=== PATIENT | male | born 1990 | race Hispanic/Latino ===

== ENCOUNTER 2020-03-23 23:56 | Inpatient (IN) | payer OTHER ==
[2020-03-24] MEDS ORDERED: cefTRIAXone\\ROCEPHIN 2 GM VIAL ONE (00:15)
[2020-03-24] MEDS ORDERED: Boostrix 0.5 ML VIAL ONE (00:15)
[2020-03-24 00:17] LABS: #Eosinphils 0.1 thou/uL (0.0-0.7); #Lymphocytes 3.5 thou/uL (1.20-3.40); #Monocytes 0.8 thou/uL (0.11-0.59); #Neutrophils 4.9 thou/uL (1.40-6.50); %Basophils 0.5 % (0.0-1.0); %Eosinophils 1.3 % (0.0-10.0); %Lymphocytes 37.4 % (21.0-51.0); %Monocytes 8.3 % (0.0-10.0); %Neutrophils 52.5 % (42.0-75.0); Hemoglobin 14.6 g/dL (14.0-18.0); Mean Corpuscular HGB CONC 34.2 g/dL (32.0-36.0); Mean Corpuscular Hemoglobin 29.7 pg (27.0-31.0); Mean Corpuscular Volume 86.8 fL (78.0-98.0); Mean Platelet Volume 7.6 fL (7.4-10.4); Platelet Count 265 thou/uL (130-400); RBC Distribution Width 12.3 % (11.5-14.5); White Blood Cell (WBC) Count 9.2 thou/uL (4.8-10.8)
[2020-03-24] MEDS ORDERED: Fentanyl 100 MCG/2 ML VIAL ONE ×8 (00:18→13:59)
[2020-03-24 00:24] LABS: PTT 26.3 sec (22.9-36.1); Prothrombin Time 13.3 sec (12.0-14.7)
[2020-03-24 00:45] LABS: ALT (SGPT) 53 U/L (8-55); AST (SGOT) 51 U/L (5-34); Albumin 4.5 g/dL (3.5-5.0); Alcohol 227 mg/dL (Less than 10); Alkaline Phosphatase 51 U/L (40-110); Anion Gap 18 mmol/L (10-20); BUN (Urea Nitrogen) 12 mg/dL (8.9-20.6); Bilirubin, Total 0.5 mg/dL (0.2-1.2); Calc. Creatinine Clearance 0 mL/min (70-130); Calcium 8.3 mg/dL (7.8-10.44); Carbon Dioxide 20 mmol/L (22-29); Chloride 106 mmol/L (98-107); Estimated GFR-MDRD Greater than 90; Globulin 2.5 g/dL (2.4-3.5); Glucose 107 mg/dL (70-105); Lipase 253 U/L (8-78); Potassium 3.8 mmol/L (3.5-5.1); Sodium 140 mmol/L (136-145)
[2020-03-24] MEDS ORDERED: Lidocaine 1% w/Epinephrine 1:100K 20 ML VIAL ONE (02:32)
[2020-03-24] MEDS ORDERED: Dextrose 50% Abboject 50 ML SYRINGE SLOW IVP PRN (03:16)
[2020-03-24] MEDS ORDERED: Dextrose 5% in Water 1,000 ML IV PRN (03:16)
[2020-03-24] MEDS ORDERED: Ondansetron PF 4 MG/2 ML Vial IVP PRN (03:16)
[2020-03-24] MEDS ORDERED: traMADol HCl 50 MG TAB PO PRN ×2 (03:20)
[2020-03-24] MEDS ORDERED: Cyclobenzaprine 10 MG TAB PO PRN (03:20)
[2020-03-24 03:30] LABS: Phosphorus 4.4 mg/dL (2.3-4.7)
[2020-03-24 03:54] LABS: Lactic Acid 3.2 mmol/L (0.5-2.2)
[2020-03-24] MEDS: Sodium Chloride 0.9% 1,000 ML IV SCH ×2 (04:00→15:13)
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
[2020-03-24] MEDS ORDERED: Clindamycin/D5W 600 mg/50 ml Premix Bag ONE (05:49)
[2020-03-24] MEDS: Clindamycin/D5W 600 MG in Premix Bag 1 BAG IVPB SCH ×3 (06:04→20:42)
[2020-03-24] MEDS ORDERED: Sodium Chloride 0.9% 1,000 ML IV SCH (07:15)
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
--- NOTE | 2020-03-24 07:18 | RAD ---
Exam:3 views left hand HISTORY: Pain and trauma. COMPARISON: None FINDINGS: Preserved joint spaces. No fracture, cortical irregularity or periosteal reaction. IMPRESSION: No fracture.
--- NOTE | 2020-03-24 07:25 | RAD ---
Exam:Left ankle 3 views HISTORY: Pain and deformity COMPARISON: None FINDINGS: Limited evaluation due to overlying external fiberglass cast. There is subcutaneous emphyse ma. Fracture, cortical irregularity is not appreciated. Ankle mortise appears to be intact. IMPRESSION: Soft tissue subcutaneous emphysema suggesting soft tissue injury. No definite fracture.
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
[2020-03-24 07:58] LABS: Bilirubin Negative (Negative); Blood, Urine Trace (Negative); Clarity Clear (Clear); Glucose, Urine (Dipstick) Normal (Negative); Ketone, Urine 10 mg/dL (Negative); Leukocyte Negative Leu/uL (Negative); Nitrite Negative (Negative); Protein, Urine (Dipstick) Negative (Neg-Trace); Urobilinogen Normal mg/dL (Less than 2)
[2020-03-24 07:59] LABS: Bacteria/HPF None Seen HPF (None Seen); Squamous Epithelial None Seen HPF (0-3)
[2020-03-24 08:00] LABS: Urine Culture Reflex Yes Yes
[2020-03-24 08:08] LABS: Medtox Reader # READER 1; Phencyclidine (PCP) Not Detected (NotDetected); THC/Cannabinoid Screen Detected (NotDetected)
[2020-03-24 08:09] LABS: Amphetamine Not Detected (NotDetected); Barbiturates Screen Not Detected (NotDetected); Benzodiazepine Screen Not Detected (NotDetected); Cocaine Metabolite Screen Detected (NotDetected); Medtox Control Line Valid? VALID (VALID); Methadone Not Detected (NotDetected); Methamphetamine Not Detected (NotDetected); Opiate Screen Not Detected (NotDetected); Oxycodone Screen Not Detected (NotDetected); Tricyclic Screen Not Detected (NotDetected)
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
[2020-03-24] MEDS ORDERED: Midazolam HCl 2 mg/2 ml Vial ONE (09:35)
[2020-03-24] MEDS ORDERED: Iopamidol-370 76% 500 ML 1 ML ONE (11:24)
[2020-03-24] MEDS ORDERED: Promethazine HCl 25 MG/ML VIAL SLOW IVP PRN (13:12)
[2020-03-24] MEDS ORDERED: Meperidine HCl/PF 25 MG/ML VIAL SLOW IVP PRN (13:12)
[2020-03-24] MEDS ORDERED: Promethazine HCl 25 MG/ML VIAL IM PRN (13:12)
[2020-03-24] MEDS ORDERED: Ondansetron HCl/PF 4 MG/2 ML Vial IVP PRN (13:12)
--- NOTE | 2020-03-24 13:16 | RAD ---
XR Forearm Rt 2 View STANDARD INDICATION: ORIF of right forearm FINDINGS: Bones: Since the comparison examination dated March 24, 2020 there has been interval reduction an d internal fixation involving the distal radial shaft fracture. Fracture alignment is near anatomic. Total fluoroscopic time was 4.3 seconds. Stable mildly displaced ulnar styloid process frac ture. Joints: No acute abnormality. Soft tissues: No radiopaque foreign body is evident. IMPRESSION: ORIF of right radial shaft fracture. Stable mildly displaced ulnar styloid process fractu re.
--- NOTE | 2020-03-24 13:18 | RAD ---
EXAM: XR Ankle Lt 3 View STANDARD DATE: 03/24/2020 1:09 PM INDICATION: Closed reduction of the left ankle COMPARISON: Left ankle radiograph dated March 23, 2020 FINDING: Submitted image demonstrates maintenance of the ankle mortise and talar dome. No definite a cute fracture or subluxation is evident. There is soft tissue injury involving the posterolateral aspect of the left ankle joint. No radiopaque foreign body is evident. IMPRESSION:No acute fracture or subluxation demonstrated.
--- NOTE | 2020-03-24 13:18 | RAD ---
EXAM: XR Hip Rt 2-3 View PROVIDED CLINICAL HISTORY: ORIF COMPARISON: None FINDINGS: 3 spot fluoroscopic views of what is labeled right hip demonstrate plate and screw fixation of the ac etabulum. IMPRESSION: As above.
--- NOTE | 2020-03-24 13:19 | RAD ---
Single submitted fluoroscopic image of the left foot INDICATION: Closed reduction of left foot fracture COMPARISON: None. FINDINGS: Bones: No acute fracture or subluxation is grossly evident. Lisfranc alignment appears preserved. Tot al fluoroscopic time was 6 seconds. Joints: Joints spaces appear preserved. Lisfranc alignment: Lisfranc alignment appears within normal limits. Soft tissues: No soft tissue injury demonstrated. No radiographic foreign body demonstrated. IMPRESSION: No acute osseous abnormality.
[2020-03-24] MEDS ORDERED: PROPOFOL 200 MG/20 ML VIAL ONE (13:33)
[2020-03-24] MEDS ORDERED: Ondansetron PF 4 MG/2 ML Vial ONE (13:33)
[2020-03-24] MEDS ORDERED: Succinylcholine Chloride 20 MG/ML 10 ml SYRINGE FS ONE (13:33)
[2020-03-24] MEDS ORDERED: Rocuronium Bromide 10 MG/ML (10ML VIAL) ONE (13:33)
[2020-03-24] MEDS ORDERED: Lidocaine 1% PF 5 ML VIAL ONE (13:33)
[2020-03-24] MEDS ORDERED: Glycopyrrolate 0.2 MG/ML 5 ML SYRINGE ONE (13:33)
[2020-03-24] MEDS ORDERED: Dexamethasone 20 MG/5 ML VIAL ONE (13:33)
[2020-03-24 14:46] VITALS: BMI 31.0
[2020-03-24] MEDS: Famotidine/PF 20 mg/2ml Vial SLOW IVP SCH ×2 (15:12→20:42)
[2020-03-24] MEDS: Acetaminophen 500 MG TAB PO SCH ×3 (15:12→20:42)
[2020-03-24] MEDS: Ibuprofen 600 MG TAB PO SCH ×2 (15:12→20:42)
[2020-03-24] MEDS: Senokot S 8.6-50 MG TAB PO SCH ×2 (15:13→22:28)
[2020-03-24] MEDS: Polyethylene Glycol 3350 17 GM Packet PO SCH (15:13)
[2020-03-24] MEDS: Morphine 4 MG/ML VIAL SLOW IVP PRN ×2 (16:16→20:41)
[2020-03-24] MEDS: CEFAZOLIN 2 GM in Premix Bag 1 BAG IVPB SCH (17:28)
[2020-03-24 17:52] LABS: SARS-CoV-2 MS2 Positive; SARS-CoV-2 N Gene Negative; SARS-CoV-2 S Gene Negative; SARS-CoV-2 by NAA Not Detected (NotDetected); SARS-CoV-2 orf1ab Negative
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
[2020-03-25] MEDS: Sodium Chloride 0.9% 1,000 ML IV SCH ×5 (00:03→23:30)
[2020-03-25] MEDS: CEFAZOLIN 2 GM in Premix Bag 1 BAG IVPB SCH ×3 (00:19→17:16)
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
[2020-03-25] MEDS: Acetaminophen 500 MG TAB PO SCH ×3 (02:59→15:24)
[2020-03-25 05:43] LABS: Band 6 % (5-11); Hemoglobin 11.4 g/dL (14.0-18.0); Lymphocytes 9 % (21-51); MDiff Complete? YES; Mean Corpuscular HGB CONC 33.6 g/dL (32.0-36.0); Mean Corpuscular Hemoglobin 29.4 pg (27.0-31.0); Mean Corpuscular Volume 87.5 fL (78.0-98.0); Mean Platelet Volume 8.1 fL (7.4-10.4); Monocytes 12 % (0-10); Neutrophil 73 % (42-75); Platelet Count 192 thou/uL (130-400); RBC Distribution Width 12.3 % (11.5-14.5); Red Blood Cell (RBC) Count 3.87 mill/uL (4.70-6.10)
[2020-03-25 05:45] LABS: Anion Gap 14 mmol/L (10-20); BUN (Urea Nitrogen) 9 mg/dL (8.9-20.6); Calc. Creatinine Clearance 180 mL/min (70-130); Carbon Dioxide 21 mmol/L (22-29); Chloride 104 mmol/L (98-107); Estimated GFR-MDRD Greater than 90; Glucose 138 mg/dL (70-105); Phosphorus 2.2 mg/dL (2.3-4.7); Potassium 4.3 mmol/L (3.5-5.1); Sodium 135 mmol/L (136-145)
[2020-03-25] MEDS: Clindamycin/D5W 600 MG in Premix Bag 1 BAG IVPB SCH ×3 (05:47→21:00)
[2020-03-25] MEDS: Ibuprofen 600 MG TAB PO SCH ×2 (05:48→14:17)
[2020-03-25] MEDS ORDERED: Fentanyl 100 MCG/2 ML VIAL ONE (07:05)
[2020-03-25] MEDS ORDERED: Midazolam HCl 2 mg/2 ml Vial ONE (07:05)
[2020-03-25] MEDS ORDERED: Lidocaine 2% Jelly 5 ML TUBE ONE (07:06)
[2020-03-25] MEDS ORDERED: AFRIN NASAL MIST 15 ML BOT ONE (07:06)
[2020-03-25] MEDS ORDERED: HYDROmorphone 0.5 MG/0.5 ML SYRINGE ONE ×4 (07:06→11:59)
[2020-03-25] MEDS ORDERED: Lidocaine 1% w/Epinephrine 1:100K 20 ML VIAL ONE (07:24)
[2020-03-25] MEDS ORDERED: Bacitracin Zinc Ointment 30 gm TUBE ONE (07:25)
[2020-03-25] MEDS ORDERED: Chlorhexidine Gluconate 15 ML UDCUP SSP ONE (07:25)
[2020-03-25] MEDS ORDERED: Sodium Phosphate 30 MMOL in Sodium Chloride 0.9% 250 ML 250 ML IVPB SCH (07:45)
[2020-03-25] MEDS ORDERED: PHENYLEPHRINE-NS 100 MCG/ML 10 ML SYRINGE ONE ×2 (09:01→09:46)
[2020-03-25] MEDS ORDERED: Glycopyrrolate 0.2 MG/ML 5 ML SYRINGE ONE (09:01)
[2020-03-25] MEDS ORDERED: Dexamethasone 20 MG/5 ML VIAL ONE (09:01)
[2020-03-25] MEDS ORDERED: Succinylcholine Chloride 20 MG/ML 10 ml SYRINGE FS ONE (09:01)
[2020-03-25] MEDS ORDERED: Lidocaine 1% PF 5 ML VIAL ONE (09:01)
[2020-03-25] MEDS ORDERED: PROPOFOL 200 MG/20 ML VIAL ONE (09:01)
[2020-03-25] MEDS ORDERED: Ondansetron PF 4 MG/2 ML Vial ONE (09:01)
[2020-03-25] MEDS ORDERED: Rocuronium Bromide 10 MG/ML (10ML VIAL) ONE (09:01)
[2020-03-25] MEDS: Enoxaparin Sodium 30 MG/0.3 ML SYRINGE SC SCH ×2 (09:59→20:08)
[2020-03-25] MEDS: Senokot S 8.6-50 MG TAB PO SCH ×2 (09:59→20:17)
[2020-03-25] MEDS: Polyethylene Glycol 3350 17 GM Packet PO SCH (09:59)
[2020-03-25] MEDS: Famotidine/PF 20 mg/2ml Vial SLOW IVP SCH ×2 (09:59→20:08)
[2020-03-25] MEDS ORDERED: Meperidine HCl/PF 25 MG/ML VIAL SLOW IVP PRN ×2 (11:48)
[2020-03-25] MEDS ORDERED: Promethazine HCl 25 MG/ML VIAL SLOW IVP PRN (11:48)
[2020-03-25] MEDS ORDERED: HYDROmorphone 2 MG/ML VIAL SLOW IVP PRN (11:48)
[2020-03-25] MEDS ORDERED: Ondansetron HCl/PF 4 MG/2 ML Vial IVP PRN (11:48)
[2020-03-25] MEDS ORDERED: Promethazine HCl 25 MG/ML VIAL IM PRN (11:48)
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
--- NOTE | 2020-03-25 19:33 | CT ---
CT OF THE FACE WITHOUT IV CONTRAST: 03/25/20 INDICATION: Follow-up open reduction and internal fixation of the facial fractures. COMPARISON: Prior exam dated 03/24/20 at 12:44 a.m. FINDINGS: Since the comparison examination, there has been interval wiring of the maxilla. There has been inter chiquita open reduction internal fixation of the comminuted mandibular protuberance and body fractures. Fr acture alignment is near anatomic. Instrumentation projects in the expected position. Bilateral sage bular condylar fractures do not appreciably changed in position and alignment. There is remote left l monie papyracea fracture that is stable appearing. There is scattered mucosal thickening and ethmoid air cells, maxillary sinuses and sphenoid sinus. The visualized intracranial contents appear within n ormal limits. The orbits are normal appearing. There is some edema and soft tissue gas seen overlying the mandible as well as some thickening of the overlying platysma likely reactive in nature related to trauma and recent surgery. IMPRESSION: 1. Interval ORIF of the comminuted midline mandibular fracture s. 2. Mandibular condylar fractures do not appear appreciably changed in position. 3. Interval wiring of the maxilla. POS: BH
[2020-03-25] MEDS: Bacitracin 1 PK TOP SCH (20:07)
[2020-03-25] MEDS: Chlorhexidine Gluconate 15 ML UDCUP SSP SCH (20:08)
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
[2020-03-26] MEDS: Acetaminophen 650 MG/20.3 ML UDCUP PO SCH ×3 (01:00→14:53)
[2020-03-26] MEDS: Ibuprofen 100 MG/5 ML UDCUP PO SCH ×4 (01:06→18:08)
[2020-03-26 05:04] LABS: #Lymphocytes 1.2 thou/uL (1.20-3.40); #Monocytes 1.4 thou/uL (0.11-0.59); %Eosinophils 0.2 % (0.0-10.0); %Lymphocytes 10.3 % (21.0-51.0); %Monocytes 11.7 % (0.0-10.0); %Neutrophils 77.7 % (42.0-75.0); Hemoglobin 9.5 g/dL (14.0-18.0); Mean Corpuscular HGB CONC 32.4 g/dL (32.0-36.0); Mean Corpuscular Hemoglobin 28.9 pg (27.0-31.0); Mean Corpuscular Volume 89.2 fL (78.0-98.0); Mean Platelet Volume 7.7 fL (7.4-10.4); Platelet Count 186 thou/uL (130-400); RBC Distribution Width 12.2 % (11.5-14.5); White Blood Cell (WBC) Count 11.6 thou/uL (4.8-10.8)
[2020-03-26] MEDS: Clindamycin/D5W 600 MG in Premix Bag 1 BAG IVPB SCH ×3 (05:15→21:12)
[2020-03-26 05:25] LABS: Anion Gap 11 mmol/L (10-20); BUN (Urea Nitrogen) 9 mg/dL (8.9-20.6); CK (CPK) 3322 U/L (30-200); Calc. Creatinine Clearance 183 mL/min (70-130); Calcium 7.9 mg/dL (7.8-10.44); Carbon Dioxide 25 mmol/L (22-29); Chloride 107 mmol/L (98-107); Estimated GFR-MDRD Greater than 90; Glucose 141 mg/dL (70-105); Magnesium 2.1 mg/dL (1.6-2.6); Potassium 3.9 mmol/L (3.5-5.1); Sodium 139 mmol/L (136-145)
[2020-03-26 05:28] LABS: Phosphorus 1.9 mg/dL (2.3-4.7)
[2020-03-26] MEDS ORDERED: Sodium Phosphate 30 MMOL in Sodium Chloride 0.9% 250 ML 250 ML IVPB SCH (06:45)
[2020-03-26] MEDS: Famotidine/PF 20 mg/2ml Vial SLOW IVP SCH ×2 (09:25→21:12)
[2020-03-26] MEDS: Enoxaparin Sodium 30 MG/0.3 ML SYRINGE SC SCH ×2 (09:25→21:11)
[2020-03-26] MEDS: Senokot S 8.6-50 MG TAB PO SCH ×2 (09:25→21:12)
[2020-03-26] MEDS: Bacitracin 1 PK TOP SCH ×2 (09:25→21:10)
[2020-03-26] MEDS: Chlorhexidine Gluconate 15 ML UDCUP SSP SCH ×2 (09:25→21:10)
[2020-03-26] MEDS: Polyethylene Glycol 3350 17 GM Packet PO SCH (09:25)
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
[2020-03-26] MEDS ORDERED: Sodium Chloride 0.65% Nasal 44 ML BOT EA NARE PRN (11:47)
[2020-03-26] MEDS: Sodium Chloride 0.9% 1,000 ML IV SCH ×3 (12:36→21:09)
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
[2020-03-27] MEDS: Acetaminophen 650 MG/20.3 ML UDCUP PO SCH ×7 (00:48→20:52)
[2020-03-27] MEDS: Ibuprofen 100 MG/5 ML UDCUP PO SCH ×3 (01:01→18:55)
[2020-03-27] MEDS: Morphine 4 MG/ML VIAL SLOW IVP PRN (01:06)
[2020-03-27] MEDS: Sodium Chloride 0.9% 1,000 ML IV SCH ×5 (02:42→20:28)
[2020-03-27] MEDS: Clindamycin/D5W 600 MG in Premix Bag 1 BAG IVPB SCH ×3 (05:16→21:00)
[2020-03-27 05:19] LABS: #Eosinphils 0.1 thou/uL (0.0-0.7); #Lymphocytes 2.5 thou/uL (1.20-3.40); #Monocytes 0.7 thou/uL (0.11-0.59); #Neutrophils 5.3 thou/uL (1.40-6.50); %Basophils 0.1 % (0.0-1.0); %Eosinophils 0.7 % (0.0-10.0); %Lymphocytes 28.9 % (21.0-51.0); %Monocytes 8.4 % (0.0-10.0); %Neutrophils 61.9 % (42.0-75.0); Hemoglobin 8.3 g/dL (14.0-18.0); Mean Corpuscular HGB CONC 32.6 g/dL (32.0-36.0); Mean Corpuscular Hemoglobin 29.2 pg (27.0-31.0); Mean Corpuscular Volume 89.3 fL (78.0-98.0); Mean Platelet Volume 8.5 fL (7.4-10.4); Platelet Count 212 thou/uL (130-400); RBC Distribution Width 12.1 % (11.5-14.5); Red Blood Cell (RBC) Count 2.83 mill/uL (4.70-6.10); White Blood Cell (WBC) Count 8.6 thou/uL (4.8-10.8)
[2020-03-27 05:56] LABS: Anion Gap 13 mmol/L (10-20); BUN (Urea Nitrogen) 12 mg/dL (8.9-20.6); CK (CPK) 2476 U/L (30-200); Calc. Creatinine Clearance 199 mL/min (70-130); Calcium 7.5 mg/dL (7.8-10.44); Carbon Dioxide 23 mmol/L (22-29); Chloride 108 mmol/L (98-107); Estimated GFR-MDRD Greater than 90; Glucose 105 mg/dL (70-105); Phosphorus 2.6 mg/dL (2.3-4.7); Potassium 3.6 mmol/L (3.5-5.1); Sodium 140 mmol/L (136-145)
[2020-03-27] MEDS: Chlorhexidine Gluconate 15 ML UDCUP SSP SCH ×2 (08:54→20:18)
[2020-03-27] MEDS: Bacitracin 1 PK TOP SCH ×2 (08:54→20:19)
[2020-03-27] MEDS: Enoxaparin Sodium 30 MG/0.3 ML SYRINGE SC SCH ×2 (08:54→20:19)
[2020-03-27] MEDS: Famotidine/PF 20 mg/2ml Vial SLOW IVP SCH ×2 (08:54→20:19)
[2020-03-27] MEDS: Polyethylene Glycol 3350 17 GM Packet PO SCH (10:35)
[2020-03-27] MEDS: Senokot S 8.6-50 MG TAB PO SCH ×2 (10:35→20:21)
[2020-03-27] MEDS ORDERED: Dexamethasone 4 MG in Sodium Chloride 0.9% 50 ML IVPB SCH (11:00)
[2020-03-27] MEDS: Dexamethasone 4 mg/ml Vial SLOW IVP SCH ×2 (12:53→18:47)
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
[2020-03-27] MEDS ORDERED: traMADol HCl 50 MG TAB PO SCH (19:00)
[2020-03-27] MEDS ORDERED: Acetaminophen/Codeine 12.5 ML UDCUP PO PRN ×2 (20:35)
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
[2020-03-28] MEDS: Dexamethasone 4 mg/ml Vial SLOW IVP SCH ×3 (00:11→11:33)
[2020-03-28] MEDS: Ibuprofen 100 MG/5 ML UDCUP PO SCH ×3 (01:59→17:18)
[2020-03-28] MEDS: Acetaminophen 650 MG/20.3 ML UDCUP PO SCH ×4 (01:59→20:07)
[2020-03-28] MEDS: Clindamycin/D5W 600 MG in Premix Bag 1 BAG IVPB SCH ×3 (05:19→22:00)
[2020-03-28 05:38] LABS: #Basophils 0.1 thou/uL (0.0-0.2); #Lymphocytes 0.8 thou/uL (1.20-3.40); #Monocytes 0.3 thou/uL (0.11-0.59); #Neutrophils 6.1 thou/uL (1.40-6.50); %Basophils 0.7 % (0.0-1.0); %Eosinophils 0.4 % (0.0-10.0); %Lymphocytes 11.1 % (21.0-51.0); %Monocytes 4.2 % (0.0-10.0); %Neutrophils 83.7 % (42.0-75.0); Hemoglobin 9.2 g/dL (14.0-18.0); Mean Corpuscular HGB CONC 31.9 g/dL (32.0-36.0); Mean Corpuscular Hemoglobin 28.1 pg (27.0-31.0); Mean Corpuscular Volume 88.1 fL (78.0-98.0); Mean Platelet Volume 7.6 fL (7.4-10.4); Platelet Count 276 thou/uL (130-400); Red Blood Cell (RBC) Count 3.29 mill/uL (4.70-6.10); White Blood Cell (WBC) Count 7.3 thou/uL (4.8-10.8)
[2020-03-28 06:01] LABS: Anion Gap 13 mmol/L (10-20); BUN (Urea Nitrogen) 10 mg/dL (8.9-20.6); CK (CPK) 1980 U/L (30-200); Calc. Creatinine Clearance 212 mL/min (70-130); Calcium 8.4 mg/dL (7.8-10.44); Carbon Dioxide 22 mmol/L (22-29); Chloride 105 mmol/L (98-107); Estimated GFR-MDRD Greater than 90; Glucose 140 mg/dL (70-105); Phosphorus 3.9 mg/dL (2.3-4.7); Sodium 136 mmol/L (136-145)
[2020-03-28] MEDS: Famotidine/PF 20 mg/2ml Vial SLOW IVP SCH ×2 (09:00→20:09)
[2020-03-28] MEDS: Chlorhexidine Gluconate 15 ML UDCUP SSP SCH ×2 (09:00→20:09)
[2020-03-28] MEDS: Enoxaparin Sodium 30 MG/0.3 ML SYRINGE SC SCH ×2 (09:00→20:09)
[2020-03-28] MEDS: Bacitracin 1 PK TOP SCH ×2 (09:00→20:08)
[2020-03-28] MEDS: Polyethylene Glycol 3350 17 GM Packet PO SCH (09:01)
[2020-03-28] MEDS: Senokot S 8.6-50 MG TAB PO SCH ×2 (09:01→20:19)
[2020-03-28] MEDS: Sodium Chloride 0.9% 1,000 ML IV SCH ×2 (09:05→17:17)
[2020-03-28] MEDS ORDERED: Acetaminophen 650 MG/20.3 ML UDCUP PO SCH (21:00)
[2020-03-28] MEDS ORDERED: Acetaminophen W/ Codeine 5 ML UDCUP PO PRN ×2 (21:54→21:56)
[2020-03-29] MEDS: Ibuprofen 100 MG/5 ML UDCUP PO SCH ×2 (01:48→08:59)
[2020-03-29] MEDS: Acetaminophen 650 MG/20.3 ML UDCUP PO SCH ×2 (02:28→09:12)
[2020-03-29] MEDS: Clindamycin/D5W 600 MG in Premix Bag 1 BAG IVPB SCH (05:00)
--- NOTE | 2020-03-29 06:05 | PRG ---
DATE OF SERVICE: 03/28/2020 The patient was seen during morning rounds. SUBJECTIVE: The patient was sitting up in his chair comfortably, in no acute distress. He states he is feeling good and continues to endorse the majority of his pain comes from his jaw, especially at 2 a.m., at which point, he cannot sleep. Yesterday, he was able to walk with Physical Therapy with the use of a walker. He is now only nonweightbearing on his right side upper and lower. The patient says he is insured, but there is no insurance on file yet. This will determine whether he goes to rehab or goes home. OBJECTIVE: VITAL SIGNS: His temperature, heart rate, respiratory rate, saturation, blood pressures have all been stable and normal. His urine culture is negative. GENERAL: Sitting up comfortably in his chair. In no acute distress. HEENT: The patient's jaw is wired shut. He is able to speak pretty well despite that. Otherwise, NC/AT. RESPIRATORY: Good chest rise and fall, no respiratory distress. CARDIOVASCULAR: No edema. MUSCULOSKELETAL: The patient has good motion of all 4 extremities. EXTREMITIES: His left and right lower extremities and his right upper extremity are wrapped up in bandages. NEUROLOGIC: A and O x4, no focal deficit. DIAGNOSTIC STUDIES: His white count was down to 7.3 today, he has 84% PMNs. His hemoglobin is up to 9.2 from 8.3 yesterday, and his platelets are up to 276 from 212 yesterday. His urine culture is negative. PLAN: Continue current full liquid diet and add on Ensure. Discontinue his normal saline. Continue physical and occupational therapy. Continue current pain regimen. The patient's face is less swollen after the Decadron he received yesterday. Placement is pending whether or not he has insurance, but he is otherwise ready to be discharged. Dr. Hou saw this patient and agrees with the plan described above. Job ID: [id number] [facility]
[2020-03-29 07:59] VITALS: TEMP 97.9
[2020-03-29] MEDS: Bacitracin 1 PK TOP SCH (08:57)
[2020-03-29] MEDS: Chlorhexidine Gluconate 15 ML UDCUP SSP SCH (08:58)
[2020-03-29] MEDS: Enoxaparin Sodium 30 MG/0.3 ML SYRINGE SC SCH (08:58)
[2020-03-29] MEDS: Famotidine/PF 20 mg/2ml Vial SLOW IVP SCH (08:58)
[2020-03-29] MEDS: Polyethylene Glycol 3350 17 GM Packet PO SCH (09:12)
[2020-03-29] MEDS: Senokot S 8.6-50 MG TAB PO SCH (09:12)
[2020-03-29 12:43] VITALS: BP 118/74
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
[2020-03-29] MEDS ORDERED: Famotidine 20 MG TAB PO SCH (21:00)
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
== END 2020-03-29 15:50 | disposition home or self-care (01) | DRG 500 ==
LOC: ERS 23:56 → ERHOLD 03-24 03:21 → IMCU/EMU 03-24 14:30 → SJJU 03-24 19:38
PROVIDERS: ADMIT Specialist; ATTEND Specialist
PROC: 0PSH04Z Reposition Right Radius with Internal Fixation Device, Open Approach (ICD-10-PCS; principal; 2020-03-24)
PROC: 0QS404Z Reposition Right Acetabulum with Internal Fixation Device, Open Approach (ICD-10-PCS; 2020-03-24)
PROC: 3E0234Z Introduction of Serum, Toxoid and Vaccine into Muscle, Percutaneous Approach (ICD-10-PCS; 2020-03-24)
PROC: 0SSGXZZ Reposition Left Ankle Joint, External Approach (ICD-10-PCS; 2020-03-24)
PROC: 0JDR0ZZ Extraction of Left Foot Subcutaneous Tissue and Fascia, Open Approach (ICD-10-PCS; 2020-03-24)
PROC: 0NSV04Z Reposition Left Mandible with Internal Fixation Device, Open Approach (ICD-10-PCS; 2020-03-25)
PROC: 0NST04Z Reposition Right Mandible with Internal Fixation Device, Open Approach (ICD-10-PCS; 2020-03-25)
PROC: 0CDXXZ1 Extraction of Lower Tooth, Multiple, External Approach (ICD-10-PCS; 2020-03-25)
PROC: 0HQ1XZZ Repair Face Skin, External Approach (ICD-10-PCS; 2020-03-25)
DX: S52.301A Unspecified fracture of shaft of right radius, initial encounter for closed fracture (principal); S32.421A Displaced fracture of posterior wall of right acetabulum, initial encounter for closed fracture; S02.612B Fracture of condylar process of left mandible, initial encounter for open fracture; E87.1 Hypo-osmolality and hyponatremia; M62.82 Rhabdomyolysis; S02.611B Fracture of condylar process of right mandible, initial encounter for open fracture; Z20.828 Contact with and (suspected) exposure to other viral communicable diseases; N28.1 Cyst of kidney, acquired; F10.129 Alcohol abuse with intoxication, unspecified; R74.0 Nonspecific elevation of levels of transaminase and lactic acid dehydrogenase [LDH]; S93.05XA Dislocation of left ankle joint, initial encounter; F14.129 Cocaine abuse with intoxication, unspecified; F12.129 Cannabis abuse with intoxication, unspecified; E83.39 Other disorders of phosphorus metabolism; S91.012A Laceration without foreign body, left ankle, initial encounter; Y90.7 Blood alcohol level of 200-239 mg/100 ml; Z23 Encounter for immunization; V47.5XXD Car driver injured in collision with fixed or stationary object in traffic accident, subsequent encounter
CPT/HCPCS: 12015; 25505; 27840; 36415; 36416; 70450; 70486; 70498; 71260; 72125; 74177; 76000; 76377; 80048; 80053; 80306; 80307; 81001; 82550; 83605; 83690; 83735; 84100; 85025; 85610; 85730; 87086; 87635; 90471; 90715; 96361; 96365; 96374; 96375; 96376; 99292; C1713; G0390; J0690; J0696; J1100; J1170; J1650; J2250; J2270; J2405; J2704; J3010; J3490; J7030; J7050; Q9967; S0028; U0003